=== PATIENT | female | born 1995 | race Caucasian/White ===

== ENCOUNTER 2017-02-17 16:27 | Emergency (ER) | payer MEDICAID, OTHER ==
[~2017-02-17] VITALS: Ht 152.4 cm; Wt 61.4 kg
[~2017-02-17 16:27] MED LIST: LEVO500T6 PO
[2017-02-17 16:31] VITALS: BP 122/65
[2017-02-17] MEDS ORDERED: NACL 0.9% 500 ML IV SCH (17:49)
[2017-02-17] MEDS ORDERED: ONDANSETRON 4 MG/2 ML VIAL IVP ONE (17:50)
[2017-02-17] MEDS ORDERED: MORPHINE SULFATE 10 MG/ML SYR IVP ONE (17:50)
[2017-02-17 18:59] LABS: APPEARANCE,URINE CLOUDY (CLEAR); BILIRUBIN,URINE NEGATIVE (NEGATIVE); BLOOD, URINE 3+ (NEGATIVE); COLOR,URINE RED (YELLOW); LEUKOCYTE ESTERASE ,URINE NEGATIVE (NEGATIVE); NITRITE, URINE NEGATIVE (NEGATIVE); PROTEIN,URINE 2+ (NEGATIVE); UGLUCOSE NEGATIVE (NEGATIVE); UROBILINOGEN,URINE 0.2 EU/dL (0.2 - 1)
[2017-02-17 19:01] LABS: BACTERIA,URINE 1+ /HPF (None Seen); RBC,URINE TOO NUMEROUS TO COUN /HPF (0-5); SQUAMOUS EPITHELIAL CELL,UR 0-3 (FEW) /LPF (0-3 (FEW))
[2017-02-17 19:33] VITALS: BP 107/68
== END 2017-02-17 19:33 | disposition home or self-care (01) ==
LOC: MED 16:27
DX: N23 Unspecified renal colic (principal); R11.10 Vomiting, unspecified; Z87.442 Personal history of urinary calculi; Z79.899 Other long term (current) drug therapy
CPT/HCPCS: 74176; 81001; 81025; 96361; 96374; 96375; 99285; J2270; J2405; J7030

== ENCOUNTER 2017-04-01 03:44 | Emergency (ER) | payer MEDICAID ==
[~2017-04-01] VITALS: Ht 152.4 cm; Wt 59.0 kg
[2017-04-01 03:53] VITALS: BP 111/65
[2017-04-01] MEDS ORDERED: NACL 0.9% 500 ML IV ONE ×2 (03:57)
--- NOTE | 2017-04-01 03:57 | NUR ---
PT TAKEN TO BED 4
[2017-04-01] MEDS ORDERED: KETOROLAC 30 MG/ML VIAL IVP ONE (04:00)
[2017-04-01 04:03] LABS: APPEARANCE,URINE HAZY (CLEAR); BILIRUBIN,URINE NEGATIVE (NEGATIVE); BLOOD, URINE 1+ (NEGATIVE); COLOR,URINE YELLOW (YELLOW); LEUKOCYTE ESTERASE ,URINE TRACE (NEGATIVE); NITRITE, URINE POSITIVE (NEGATIVE); UGLUCOSE NEGATIVE (NEGATIVE)
--- NOTE | 2017-04-01 04:04 | NUR ---
Dr. Boothe evaluating patient at bedside.
--- NOTE | 2017-04-01 04:10 | NUR ---
21/F BIB MOTHER, C/O RIGHT FLANK PAIN SINCE 1999 YESTERDAY; PT ALSO STATES SHE HAS BEEN VOMTING SINCE YESTERDAY; HX OF KIDNEY STONES REPORTED. DENIES DYSURIA AT THIS TIME. PT AFEBRILE. NO PAIN MED/INTERVENTION BY PT REPORTED.
[2017-04-01 04:12] LABS: RBC,URINE 3-10 (FEW) /HPF (0-5); WBC,URINE 20-60 /HPF (0-5)
[2017-04-01] MEDS: ONDANSETRON 4 MG/2 ML VIAL IVP ONE ×2 (04:23→04:29)
--- NOTE | 2017-04-01 04:26 | NUR ---
PT TAKEN TO CT
[2017-04-01] MEDS ORDERED: cefTRIAXone 1,000 MG VIAL ONE (04:40)
--- NOTE | 2017-04-01 05:25 | NUR ---
Patient discharged with v/s stable. Written and verbal after care instructions given and explained. Patient alert, oriented and verbalized understanding of instructions. Ambulatory with steady gait. All questions addressed prior to discharge. ID band removed. Patient advised to follow up with PMD. Rx of MACROBID 100MG PO BID X 7DAYS, ZOFRAN ODT 4MG PO 1 TAB EVERY 8HOURS PRN FOR NAUSEA, MOTRIN 800MG PO 1TAB 3 TIMES A DAY given. Patient educated on indication of medication including possible reaction and side effects. Opportunity to ask questions provided and answered. IV removed, catheter intact and site benign. Applied folded 4x4 gauze and tape to stop bleeding.
[2017-04-01 05:29] VITALS: BP 101/50
== END 2017-04-01 05:25 | disposition home or self-care (01) ==
LOC: MED 03:44
DX: N20.0 Calculus of kidney (principal); Z87.442 Personal history of urinary calculi
CPT/HCPCS: 74176; 81001; 81025; 87086; 87186; 96365; 96375; 99285; J0696; J1885; J2405; J7030; J7060

== ENCOUNTER 2021-09-29 00:05 | Emergency (ER) | payer MEDICAID, OTHER ==
[~2021-09-29] VITALS: Ht 152.4 cm; Wt 74.4 kg
[2021-09-29 00:08] VITALS: BP 103/48
--- NOTE | 2021-09-29 00:12 | NUR ---
PT AMBULATORY TO BED #5
--- NOTE | 2021-09-29 00:51 | NUR ---
Dr. Griffin examining patient.
[2021-09-29] MEDS ORDERED: ONDANSETRON 4 MG ODT PO ONE (01:05)
[2021-09-29] MEDS ORDERED: DICYCLOMINE 10 MG CAP PO ONE (01:05)
[2021-09-29] MEDS ORDERED: LOPERAMIDE 2 MG CAP PO ONE (01:05)
--- NOTE | 2021-09-29 01:11 | NUR ---
PCR OSVALDO COLLECTED AND WALKED TO LAB. GIVEN TO TECH. JOHN PAUL
--- NOTE | 2021-09-29 01:21 | NUR ---
PT UNABLE TO PROVIDED URINE SPECIMEN AT THIS TIME. PT PROVIDED PO FLUIDS
[2021-09-29] MEDS ORDERED: ONDA-188 SL (01:27)
[2021-09-29] MEDS ORDERED: LOPE-289 PO (01:27)
[2021-09-29] MEDS ORDERED: ACET-2619 PO (01:28)
--- NOTE | 2021-09-29 01:35 | NUR ---
PT HAD A HEADACHE SINCE SATURDAY. PT HAD A FEVER . SINCE THEN PY HAS MIDDLE GASTRIC PAIN , [place], 04/16. PT HAS N/V/D. DIARRHEA WAS BLOODY STOOL THAT LESSENED OVER TIME. PT TRIED WARM COMPRESS, TYLENOL. PT DENIES CHEST PAIN, SOB LMP: 09/03/21 PMH: NONE ALLERGIES:NONE
[2021-09-29 02:00] VITALS: BP 105/50
--- NOTE | 2021-09-29 02:00 | NUR ---
Patient discharged with v/s stable. Written and verbal after care instructions given and explained. Patient alert, oriented and verbalized understanding of instructions. Ambulatory with steady gait. All questions addressed prior to discharge. ID band removed. Patient advised to follow up with PMD. Rx of TYLENOL. IMMODIUM, ZOFRAN given. Opportunity to ask questions provided and answered.
--- NOTE | 2021-09-29 02:15 | NUR ---
The patient's care was reviewed and supervised by Cecilia Waters RN.
--- NOTE | 2021-09-29 04:21 | NUR ---
Note shade in EDM - 09/29/21 at 0423 by JUANA pt aggresive to self. pt told dr she better take that 5150 hold off or else things are going to get bad. pt cussing at doctor. pt threatens that he is homicidal.
== END 2021-09-29 02:00 | disposition home or self-care (01) ==
LOC: MED 00:05
DX: R19.7 Diarrhea, unspecified (principal); Z20.822 Contact with and (suspected) exposure to COVID-19; R11.2 Nausea with vomiting, unspecified; R10.9 Unspecified abdominal pain; Z79.899 Other long term (current) drug therapy
CPT/HCPCS: 36415; 99284; Q0162; U0003